=== PATIENT | male | born 1935 | race Caucasian/White ===

== ENCOUNTER 2017-12-23 18:07 | Outpatient (CLI) | payer MEDICARE, OTHER | END 2017-12-23 18:08 | disposition critical access hospital (66) | LOC: EMS 18:07 | PROVIDERS: ATTEND Surgery | DX: H53.133 Sudden visual loss, bilateral (principal); R51 Headache | CPT/HCPCS: A0425; A0429 ==

== ENCOUNTER 2017-12-23 18:26 | Emergency (ER) | payer MEDICARE, OTHER ==
--- NOTE | 2017-12-23 18:39 | ED Physician Documentation ---
PD HPI FOCAL NEURO - Stated complaint Stated Complaint: CP, WEAKNESS, DIFF SEEING - Chief complaint Chief Complaint: Neuro - History obtained from History obtained from: Patient - History of Present Illness Timing - onset: How many hours ago (1), Other (1729) Timing - duration: Hours (1) Timing - details: Abrupt onset Severity of deficit: Moderate Weakness: No: Face, Arm, Hand, Leg, Foot, Right, Left Numbness: No: Face, Arm, Hand, Leg, Foot, Right, Left Associated symptoms: Headache (mild R sided) Contributing factors: negative: Anticoagulated, Vascular dz, Atrial fibrillation , Prosthetic heart valve Baseline status: positive: Other (A&Ox3, cerebral palsy) Similar symptoms before: Has not had sx before Recently seen: Not recently seen Review of Systems Ten Systems: 10 systems reviewed and negative Constitutional: denies: Fever, Chills Eyes: reports: Decreased vision. denies: Photophobia Ears: denies: Ear pain Nose: denies: Rhinorrhea / runny nose, Congestion Throat: denies: Sore throat Cardiac: denies: Chest pain / pressure Respiratory: denies: Cough GI: denies: Abdominal Pain, Nausea, Vomiting, Diarrhea Skin: denies: Rash Musculoskeletal: denies: Neck pain, Back pain Neurologic: denies: Headache PD PAST MEDICAL HISTORY - Present Medications Home Medications: Ambulatory Orders Medication Instructions Recorded Confirmed Tamsulosin [Flomax] 12/23/17 - Allergies Allergies/Adverse Reactions: Allergies Allergy/AdvReac Type Severity Reaction Status Date / Time No Known Drug Allergies Allergy Verified 12/23/17 20:32 PD ED PE NORMAL - Vitals Vital signs reviewed: Yes - General General: Alert and oriented X 3, No acute distress - HEENT HEENT: Atraumatic, PERRL, EOMI, Moist mucous membranes, Pharynx benign - Neck Neck: Supple, no meningeal sign - Cardiac Cardiac: RRR - Respiratory Respiratory: No respiratory distress, Other (Mild crackles bilaterally) - Abdomen Abdomen: Soft, Non tender, Non distended - Derm Derm: Warm and dry, No rash - Extremities Extremities: No edema, No calf tenderness / cord - Neuro Neuro: Alert and oriented X 3, No motor deficit, No sensory deficit, Normal speech - Psych Psych: Normal mood, Normal affect NIHSS - Time Time: 18:30 - Level of Consciousness Level of consciousness: (0) Alert, Keenly responsive LOC Questions: (0) Answers both Q's correct LOC Commands: (0) Performs both correctly - Gaze Best Gaze: (0) Normal - Visual Visual: (3) Bilateral Hemianopia (L sided) - Facial Palsy Facial Palsy: (0) Normal, symmetrical movement - Motor Arms (both separate) Motor Arm (right): (0) No drift Motor Arm (left): (0) No drift - Motor Legs (both separate) Motor Leg (right): (0) No drift Motor Leg (left): (0) No drift - Limb Ataxia Limb Ataxia: (0) Absent - Sensory Sensory: (0) Normal - Best Language Best Language: (0) No aphasia - Dysarthria Dysarthria: (0) Normal - Extinction and Inattention (formally neg Extinction and inattention: (0) No abnormality - Total Score/Results Total Score/Result: 3 Results - Vitals Vitals: Vital Signs - 24 hr 12/23/17 12/23/17 12/23/17 18:31 19:41 19:42 Temperature 36.8 C Heart Rate 84 68 Respiratory 18 16 Rate Blood Pressure 192/112 H 171/116 H O2 Saturation 95 82 L 96 12/23/17 12/23/17 19:48 20:05 Temperature Heart Rate 70 67 Respiratory 16 18 Rate Blood Pressure 175/81 H 155/100 H O2 Saturation 98 93 Oxygen O2 Source Room air - EKG (time done) 1927 Rate: Rate (enter#) (86) Rhythm: NSR [place]: Normal Intervals: Normal MT QRS: Normal Ischemia: ST depression - Labs Labs: Laboratory Tests 12/23/17 12/23/17 12/23/17 19:05 19:05 19:05 WBC 9.1 RBC 4.84 Hgb 15.6 Hct 46.7 MCV 96.5 H MCH 32.1 H MCHC 33.3 RDW 13.5 Plt Count 217 MPV 8.7 Neut # (Auto) 7.1 H Lymph # (Auto) 1.3 L [place] # (Auto) 0.5 Eos # (Auto) 0.1 Baso # (Auto) 0.1 Absolute Nucleated RBC 0.00 Nucleated RBC % 0.0 PT 11.2 INR 1.0 APTT 25.8 Sodium 139 Potassium 3.8 Chloride 105 Carbon Dioxide 22 Anion Gap 12.0 BUN 21 H Creatinine 1.0 Estimated GFR (MDRD) 72 L Glucose 92 Calcium 9.8 Total Bilirubin 0.8 AST 30 ALT 31 Alkaline Phosphatase 62 Total Protein 7.2 Albumin 3.9 Globulin 3.3 Albumin/Globulin Ratio 1.2 Lipase 25 - Rads (name of study) head ct Radiology: Prelim report reviewed, EMP read contemporaneously, See rad report ( no acute abnormality.) cxr Radiology: Prelim report reviewed, EMP read contemporaneously, See rad report ( Developing mild pulmonary edema pattern with small bilateral effusions.) head angio CT Radiology: Prelim report reviewed, EMP read contemporaneously, See rad report ( Findings concordant with left maxilla sinusitis, clinical correlation suggested. No hemodynamically significant intracranial arterial stenosis, occlusion, or aneurysm identified, in the proximal circulation. There is an occluded right P4 segment, appreciated upon discussion of the patient's clinical symptoms with the stroke neurologist. ) neck angio CT Radiology: Prelim report reviewed, EMP read contemporaneously, See rad report ( Acute appearing left maxillary sinusitis. No hemodynamically significant extracranial arterial stenosis or evident dissection. ) PD MEDICAL DECISION MAKING - ED course Complexity details: reviewed results, re-evaluated patient, considered differential, d/w patient, d/w family, d/w senior environmental consultant ED course: Patient is an 82-year-old male who presents to the emergency department with a bilateral left-sided homonymous hemianopia. Concern for stroke. I consulted [place] neurology, Dr. Pinon who performed the telestroke consult. No acute findings on noncontrast head CT. The patient and his were consented for TPA treatment and this was given. I spoke with them regarding the risks and benefits myself as well as the stroke neurologist, Dr. Pinon. Dr. Pinon then requested angiograms of the head and neck before transfer to [place]. These were performed, he reviewed them and accepted the patient in transfer. Patient was sent by [facility]. COBRA forms completed. No changes in his neurological symptoms while in the emergency department. This document was made in part using voice recognition software. While efforts are made to proofread this document, sound alike and grammatical errors may occur. - Sepsis Event Vital Signs: Vital Signs - 24 hr 12/23/17 12/23/17 12/23/17 18:31 19:41 19:42 Temperature 36.8 C Heart Rate 84 68 Respiratory 18 16 Rate Blood Pressure 192/112 H 171/116 H O2 Saturation 95 82 L 96 12/23/17 12/23/17 19:48 20:05 Temperature Heart Rate 70 67 Respiratory 16 18 Rate Blood Pressure 175/81 H 155/100 H O2 Saturation 98 93 Oxygen O2 Source Room air - TPA CVA checklist Inclusion crititeria: positive: Sig neuro deficit, CT no bleed, Onset know < 4.5 hr Absolute contraindications: negative: SBP>185 DBP>110 s/p tx, CT shows bleed, CT shows major est CVA, Platelets <100K, PTT > 40, INR >1.7, Known bleeding disorder, Surgery/trauma < 15 days, Seizure at onset, Internal bleed < 22 days, Brain/spine surg < 3 m, Head trauma < 3 m, CVA < 3 months, Any hx ICH, Any hx brain aneurysm, Any hx brain AVM, Any hx brain tumor, Suspect SAH Departure - Departure Disposition: 02 Transfer Acute Care Hosp Clinical Impression: 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
--- NOTE | 2017-12-23 19:04 | CT Preliminary Report ---
Exam: CT HEAD W/O IMPRESSION: No acute intracranial abnormality. RAD[facility] The call report notification system was initiated by Dr. Yusuf Cota at 19:00 hrs on 12/23/17. The above findings were discussed with Johnnie Arroyo by Dr. Yusuf Cota at 19:02 hrs on 12/23. SITE ID: [id number]
--- NOTE | 2017-12-23 19:04 | CT Report ---
EXAM: CT HEAD EXAM DATE: 12/23/2017 06:50 PM. CLINICAL HISTORY: L visual field deficit. COMPARISON: None. TECHNIQUE: Multiaxial CT images were obtained from the foramen magnum to the vertex. Reformats: Coron al. IV contrast: None. In accordance with CT protocol optimization, one or more of the following dose reduction techniques w ere utilized for this exam: automated exposure control, adjustment of mA and/or KV based on patient s ize, or use of iterative reconstructive technique. FINDINGS: Parenchyma: No intraparenchymal hemorrhage. No evidence of mass, midline shift, or CT findings of inf arction. Shoemaker-white differentiation is distinct. Extraaxial Spaces: Normal for age. No subdural or epidural collections identified. Ventricles: Normal in size and position. Sinuses and Orbits: Imaged paranasal sinuses, orbits, and mastoids show no significant abnormality. Bones: No evidence of fracture or calvarial defect. 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 IMPRESSION: No acute intracranial abnormality. RADIA The call report notification system was initiated by Dr. Yusuf Cota at 19:00 hrs on 12/23/17. The above findings were discussed with Johnnie Arroyo by Dr. Yusuf Cota at 19:02 hrs on 12/23. Referring Provider Line: [phone] SITE ID: [id number]
[2017-12-23 19:10] LABS: BASOPHILS # (AUTO) 0.1 10^3/uL (0.0-0.1); BASOPHILS % (AUTO) 0.6 %; EOSINOPHILS # (AUTO) 0.1 10^3/uL (0.0-0.7); EOSINOPHILS % (AUTO) 0.9 %; HGB - HEMOGLOBIN 15.6 g/dL (14.0-18.0); LYMPHOCYTES # (AUTO) 1.3 10^3/uL (1.5-3.5); LYMPHOCYTES % (AUTO) 14.8 %; MEAN CORPUSCULAR HEMOGLOBIN 32.1 pg (27.0-31.0); MEAN CORPUSCULAR HGB CONC 33.3 g/dL (32.0-36.0); MEAN CORPUSCULAR VOLUME 96.5 fL (80.0-94.0); MEAN PLATELET VOLUME 8.7 fL (7.4-11.4); MONOCYTES # (AUTO) 0.5 10^3/uL (0.0-1.0); MONOCYTES % (AUTO) 5.7 %; NEUTROPHILS # (AUTO) 7.1 10^3/uL (1.5-6.6); PLT - PLATELET COUNT 217 10^3/uL (130-450); RED BLOOD COUNT 4.84 10^6/uL (4.70-6.10); RED CELL DISTRIBUTION WIDTH 13.5 % (12.0-15.0); WHITE BLOOD COUNT 9.1 x10^3/uL (4.8-10.8)
[2017-12-23] MEDS ORDERED: WATER FOR INJECTION STERILE IV STA (19:23)
[2017-12-23] MEDS ORDERED: ALTEPLASE IV STA (19:23)
[2017-12-23 19:24] LABS: ALBUMIN 3.9 g/dL (3.2-5.5); ALBUMIN/GLOBULIN RATIO 1.2 (1.0-2.2); BILIRUBIN,TOTAL 0.8 mg/dL (0.2-1.0); CALCIUM 9.8 mg/dL (8.5-10.3); TOTAL PROTEIN 7.2 g/dL (6.7-8.2)
[2017-12-23] MEDS ORDERED: LABETALOL 5 MG/1 ML 20 ML MDV IVP STA ×2 (19:36→19:46)
[2017-12-23 19:45] LABS: PT - PROTHROMBIN TIME 11.2 secs (9.9-12.6)
[2017-12-23] MEDS ORDERED: ALTEPLASE 100 MG VIAL ONE (19:51)
[2017-12-23] MEDS ORDERED: IOPAMIDOL-300 100 ML VIAL ONE (20:04)
[2017-12-23 20:06] VITALS: BP 155/100
[2017-12-23] MEDS ORDERED: IOPAMIDOL-300 100 ML VIAL IVP ONE (20:34)
--- NOTE | 2017-12-23 20:44 | XRAY Report ---
EXAM: CHEST RADIOGRAPHY EXAM DATE: 12/23/2017 08:22 PM. CLINICAL HISTORY: Shortness of breath. COMPARISON: Previous exam of 03/01/2007. TECHNIQUE: 1 view. FINDINGS: Lungs/Pleura: Developing mild pulmonary edema pattern with likely small bilateral effusions. Mediastinum: Within exam limitations, the cardiomediastinal contour is normal. Other: None. IMPRESSION: Developing mild pulmonary edema pattern with small bilateral effusions. [facility] Referring Provider Line: [phone] SITE ID: [id number]
--- NOTE | 2017-12-23 21:07 | CT Preliminary Report ---
Exam: CT HEAD ANGIO Impression: Findings concordant with left maxilla sinusitis, clinical correlation suggested. No hemodynamically significant intracranial arterial stenosis, occlusion, or aneurysm identified. SITE ID: [id number]
--- NOTE | 2017-12-23 21:16 | CT Report ---
EXAM: CTA HEAD COMPARISON: CT head, 12/23/2017. CLINICAL HISTORY: B L hemianopiafrontal headache. TECHNIQUE: Axial CT images were obtained through the head during arterial phase after intravenous 80ML ISOVUE 30 0iodinated contrast. 3 dimensional MIP reconstructions are created from axial data. Stenosis is measured by NASCET type criteria. In accordance with CT protocol optimization, one or more of the following dose reduction techniques w ere utilized for this exam: automated exposure control, adjustment of mA and/or KV based on patient s ize, or use of iterative reconstructive technique. FINDINGS: Right internal carotid artery: No evidence hemodynamically significant stenosis or aneurysm is identified through the terminus. Righ t M1, M2 and visualized distal segments show no evident stenosis or aneurysm. Right A1, A2 and visual ized distal segments are unremarkable. Left internal carotid artery: No evident hemodynamically significant stenosis or aneurysm is identified through the terminus. There is extensive calcification through the siphon. Left A1, A2 and visualized distal segments are unrema rkable. Left M1, M2 and visualized distal segments are unremarkable. Posterior circulation: Intracranial vertebral arteries are right-sided dominant. PICA origins are well-visualized. There is flow in the distal right PICA. Left vertebral artery ends predominantly in a PICA, does make small co ntribution to the basilar. Basilar artery is unremarkable to its terminus. The right P1, P2 and visua lized distal segments are unremarkable. Left P1, P2 and visualized distal segments are unremarkable. There is an occluded right P4 segment (2, 554). In terms of the brain parenchyma, no hemorrhage or other discrete acute process is identified, somewh at confounded by the presence of contrast. There is fluid in the left maxillary sinus, clinical correlation sinusitis suggested. IMPRESSION: Findings concordant with left maxilla sinusitis, clinical correlation suggested. No hemodynamically significant intracranial arterial stenosis, occlusion, or aneurysm identified, in the proximal circulation. There is an occluded right P4 segment, appreciated upon discussion of the patient's clinical symptoms with the stroke neurologist. Referring Provider Line: [phone] SITE ID: [id number]
--- NOTE | 2017-12-23 21:22 | CT Preliminary Report ---
Exam: CT NECK ANGIO Impression: Acute appearing left maxillary sinusitis. No hemodynamically significant extracranial arterial stenosis or evidence of dissection. SITE ID: [id number]
--- NOTE | 2017-12-23 21:27 | CT Report ---
EXAM: CTA NECK COMPARISON: CTA head, 12/23/2017. CLINICAL HISTORY: B L hemianopia TECHNIQUE: Axial CT images were obtained through the neck during arterial phase after intravenous 80 mL ISOVUE 3 00iodinated contrast. 3 dimensional MIP reconstructions are created from axial data. Stenosis is measured by NASCET type criteria. In accordance with CT protocol optimization, one or more of the following dose reduction techniques w ere utilized for this exam: automated exposure control, adjustment of mA and/or KV based on patient s ize, or use of iterative reconstructive technique. FINDINGS: Visualized right upper chest shows no pulmonary nodules or masses. No pneumothorax. There is a small right pleural effusion. Visualized left upper chest shows no pulmonary nodules or masses. No pneumothorax. Visualized pulmonary arteries are unremarkable. No cervical adenopathy or masses are identified. No retropharyngeal fluid. There is multilevel cervical spondylosis, without high-grade bony canal stenosis identified. Facet arthropathy is most notable at the left C3-C4. Fluid is present within the left maxillary sinus, clinical correlation sinusitis suggested. No middle ear effusions. Arterial structures: Right carotid artery: Right common carotid artery originates normally from the brachycephalic, is unremarkable to the bifur cation. Right internal carotid artery is unremarkable to the skull base. Left carotid artery: Left common carotid artery originates normally from the aortic arch, and "bovine" origin, shows no ev ident hemodynamically significant stenosis or dissection to the bifurcation. No evident hemodynamical ly significant stenosis or dissection to the skull base, there is 20-40% proximal atherosclerotic jignesh rowing. Posterior circulation: Right vertebral artery originates normally from the right subclavian artery, it is dominant, shows no evident hemodynamically significant stenosis or dissection to the dural ring. Left vertebral artery is hypoplastic, originates normally from the left subclavian artery, shows no e vident stenosis or dissection to the dural ring. IMPRESSION: Acute appearing left maxillary sinusitis. No hemodynamically significant extracranial arterial stenosis or evident dissection. Referring Provider Line: [phone] SITE ID: [id number]
== END 2017-12-23 21:17 | disposition short-term general hospital (02) ==
LOC: EDUNIT# → ED 18:26
DX: H53.462 Homonymous bilateral field defects, left side (principal); I63.9 Cerebral infarction, unspecified; G80.9 Cerebral palsy, unspecified
CPT/HCPCS: 36415; 70450; 70496; 70498; 71045; 80053; 83690; 85025; 85610; 85730; 93005; 96374; 96375; 99284; 99285; J2997; Q3014; Q9967

== ENCOUNTER 2018-03-27 09:09 | Outpatient (CLI) | payer MEDICARE, OTHER ==
--- NOTE | 2018-03-27 15:21 | Ultrasound Report ---
Reason: ABNORMAL LFT'S Procedure Date: 03/27/2018 Accession Number: [id number] / [id number] Procedure: US - Abdomen Limited CPT Code: FULL RESULT: EXAM: ABDOMEN ULTRASOUND LIMITED, RUQ EXAM DATE: 03/27/2018 10:11 AM. CLINICAL HISTORY: ABNORMAL LFTS. COMPARISON: None. TECHNIQUE: Real-time scanning was performed with static images obtained. FINDINGS: Liver: The liver is mildly and diffusely echogenic area normal contour. No masses. 15.0 cm. Main portal vein flow: Hepatopetal. Gallbladder: Normal. No stones, wall thickening, or sonographic Cassidy's sign. Biliary System: CBD measures 6 mm. No intrahepatic or extrahepatic ductal dilatation. There are 2 simple appearing cysts in the right kidney measuring up to 2 cm. IMPRESSION: Mild hepatic steatosis RADIA
== END 2018-03-27 09:10 | disposition home or self-care (01) ==
LOC: DI 09:09
PROVIDERS: ATTEND Internal Medicine
DX: K76.0 Fatty (change of) liver, not elsewhere classified (principal)
CPT/HCPCS: 76705

== ENCOUNTER 2019-11-22 02:23 | Outpatient (CLI) | payer MEDICARE, OTHER | END 2019-11-22 02:24 | disposition critical access hospital (66) | LOC: EMS 02:23 | PROVIDERS: ATTEND Surgery | DX: R10.9 Unspecified abdominal pain (principal); R53.83 Other fatigue; R09.89 Other specified symptoms and signs involving the circulatory and respiratory systems | CPT/HCPCS: A0425; A0427 ==

== ENCOUNTER 2019-11-22 02:32 | Emergency (ER) | payer MEDICARE, OTHER ==
--- NOTE | 2019-11-22 02:37 | ED Physician Documentation ---
History of Present Illness - Stated complaint Stated Complaint: ABD PAIN - History obtained from History obtained from: Patient, EMS (Patient is an 83-year-old male complaint of severe abdominal pain according to EMS the found him weak and lethargic and noticed a large bloody bowel movement and brought him to the ER.Remainder the history is unknown.EMS reports that he was hypotensive and complained of abdominal pain. Remainder the history is unknown as the patient is in severe pain and hypotensive. the reports he is on xarelto for atrial fibrillation and he has cerebral palsy that causes chronic leg and back spasms.) Review of Systems Unable to obtain: AMS PD PAST MEDICAL HISTORY - Past Medical History : Benign prostate hypertrophy - Present Medications Home Medications: Ambulatory Orders Medication Instructions Recorded Confirmed Tamsulosin [Flomax] 12/23/17 - Allergies Allergies/Adverse Reactions: Allergies Allergy/AdvReac Type Severity Reaction Status Date / Time No Known Drug Allergies Allergy Verified 12/23/17 20:32 - Social History Does the pt smoke?: Yes Smoking Status: Current every day smoker Does the pt drink ETOH?: Yes Does the pt have substance abuse?: No - Immunizations Immunizations are current?: Yes - POLST Patient has POLST: No PD ED PE NORMAL - Vitals Vital signs reviewed: Yes - General General: Other (Patient is in severe to distress he is pale and diaphoretic he will open his eyes and follow commands but is complaining of severe pain) - HEENT HEENT: Atraumatic, PERRL, Moist mucous membranes - Neck Neck: Supple, no meningeal sign, Thyroid normal, No JVD - Cardiac Cardiac: Other (Irregularly irregular and tachycardic) - Respiratory Respiratory: No respiratory distress, Other (Tachypneic, trachea midline) - Abdomen Abdomen: Other (The patient has involuntary guarding and rebound present rapid bedside ultrasound shows no free fluid, negative FAST exam, no obvious aneurysm or dissectionNo midline abdominal pulsatile mass no CVA tenderness no ecchymosis diminished bowel sounds) - Male Male : Other (No blood at the urethral meatus testicles descended bilaterally) - Rectal Rectal: Other (Good rectal tone grossly Hemoccult positive patients actively having hematochezia) - Back Back: No CVA TTP, No spinal TTP - Derm Derm: Other (Pale and diaphoretic) - Extremities Extremities: No deformity - Neuro Neuro: Other (No gross neurological deficit) Results - Vitals Vitals: Vital Signs - 24 hr 11/22/19 11/22/19 11/22/19 02:32 03:01 03:08 Temperature 35.4 C L Heart Rate 80 99 101 H Respiratory 26 H 24 29 H Rate Blood Pressure 97/51 L 101/60 41/33 L O2 Saturation 96 100 11/22/19 11/22/19 11/22/19 03:38 04:08 04:27 Temperature Heart Rate 113 H 96 87 Respiratory 28 H 21 19 Rate Blood Pressure 101/89 H 99/73 87/52 L O2 Saturation 100 100 98 11/22/19 04:46 Temperature Heart Rate 75 Respiratory 26 H Rate Blood Pressure 80/43 L O2 Saturation 100 Oxygen O2 Source Nasal cannula - EKG (time done) 03:40 Rate: Other (Atrial fibrillation, no STEMI) - Labs Labs: Microbiology 11/22/19 04:30 Occult Blood - Final Stool Laboratory Tests 11/22/19 11/22/19 11/22/19 02:40 02:47 02:47 WBC 16.1 H RBC 4.72 Hgb 11.8 L Hct 39.7 L MCV 84.1 MCH 25.0 L MCHC 29.7 L RDW 16.2 H Plt Count 287 MPV 10.0 Neut # (Auto) 11.8 H Lymph # (Auto) 3.0 [place] # (Auto) 0.6 Eos # (Auto) 0.4 Baso # (Auto) 0.2 H Absolute Nucleated RBC 0.00 Nucleated RBC % 0.0 PT 19.9 H INR 1.8 H APTT 23.6 L Sodium Potassium Chloride Carbon Dioxide Anion Gap BUN Creatinine Estimated GFR (MDRD) Glucose Lactic Acid Calcium Total Creatine Kinase Troponin I High Sens B-Natriuretic Peptide TSH Urine Color Urine Clarity Urine pH Ur Specific [place] Urine Protein Urine Glucose (UA) Urine Ketones Urine Occult Blood Urine Nitrite Urine Bilirubin Urine Urobilinogen Ur Leukocyte Esterase Urine RBC Urine WBC Ur Squamous Epith Cells Urine Bacteria Urine Casts Ur Microscopic Review Urine Culture Comments Urine Opiates Screen Ur Oxycodone Screen Urine Methadone Screen Ur Propoxyphene Screen Ur Barbiturates Screen Ur Tricyclics Screen Ur Phencyclidine Scrn Ur Amphetamine Screen U Methamphetamines Scrn U Benzodiazepines Scrn Urine Cocaine Screen U Cannabinoids Screen Ethyl Alcohol Blood Type B POSITIVE Blood Type Recheck Antibody Screen NEGATIVE Crossmatch IS Only See Detail 11/22/19 11/22/19 11/22/19 02:47 02:47 02:47 WBC RBC Hgb Hct MCV MCH MCHC RDW Plt Count MPV Neut # (Auto) Lymph # (Auto) [place] # (Auto) Eos # (Auto) Baso # (Auto) Absolute Nucleated RBC Nucleated RBC % PT INR APTT Sodium 135 Potassium 4.4 Chloride 103 Carbon Dioxide 18 L Anion Gap 14.0 H BUN 43 H Creatinine 2.0 H Estimated GFR (MDRD) 32 L Glucose 138 H Lactic Acid Calcium 10.2 Total Creatine Kinase 96 Troponin I High Sens B-Natriuretic Peptide 73 TSH 3.44 Urine Color Urine Clarity Urine pH Ur Specific [place] Urine Protein Urine Glucose (UA) Urine Ketones Urine Occult Blood Urine Nitrite Urine Bilirubin Urine Urobilinogen Ur Leukocyte Esterase Urine RBC Urine WBC Ur Squamous Epith Cells Urine Bacteria Urine Casts Ur Microscopic Review Urine Culture Comments Urine Opiates Screen Ur Oxycodone Screen Urine Methadone Screen Ur Propoxyphene Screen Ur Barbiturates Screen Ur Tricyclics Screen Ur Phencyclidine Scrn Ur Amphetamine Screen U Methamphetamines Scrn U Benzodiazepines Scrn Urine Cocaine Screen U Cannabinoids Screen Ethyl Alcohol < 5.0 Blood Type Blood Type Recheck Antibody Screen Crossmatch IS Only 11/22/19 11/22/19 11/22/19 02:47 03:17 03:17 WBC RBC Hgb Hct MCV MCH MCHC RDW Plt Count MPV Neut # (Auto) Lymph # (Auto) [place] # (Auto) Eos # (Auto) Baso # (Auto) Absolute Nucleated RBC Nucleated RBC % PT INR APTT Sodium Potassium Chloride Carbon Dioxide Anion Gap BUN Creatinine Estimated GFR (MDRD) Glucose Lactic Acid 4.7 H* Calcium Total Creatine Kinase Troponin I High Sens 13.2 B-Natriuretic Peptide TSH Urine Color Urine Clarity Urine pH Ur Specific [place] Urine Protein Urine Glucose (UA) Urine Ketones Urine Occult Blood Urine Nitrite Urine Bilirubin Urine Urobilinogen Ur Leukocyte Esterase Urine RBC Urine WBC Ur Squamous Epith Cells Urine Bacteria Urine Casts Ur Microscopic Review Urine Culture Comments Urine Opiates Screen Ur Oxycodone Screen Urine Methadone Screen Ur Propoxyphene Screen Ur Barbiturates Screen Ur Tricyclics Screen Ur Phencyclidine Scrn Ur Amphetamine Screen U Methamphetamines Scrn U Benzodiazepines Scrn Urine Cocaine Screen U Cannabinoids Screen Ethyl Alcohol Blood Type Blood Type Recheck B POSITIVE Antibody Screen Crossmatch IS Only 11/22/19 04:00 WBC RBC Hgb Hct MCV MCH MCHC RDW Plt Count MPV Neut # (Auto) Lymph # (Auto) [place] # (Auto) Eos # (Auto) Baso # (Auto) Absolute Nucleated RBC Nucleated RBC % PT INR APTT Sodium Potassium Chloride Carbon Dioxide Anion Gap BUN Creatinine Estimated GFR (MDRD) Glucose Lactic Acid Calcium Total Creatine Kinase Troponin I High Sens B-Natriuretic Peptide TSH Urine Color YELLOW Urine Clarity N Urine pH 5.5 Ur Specific [place] 1.020 Urine Protein 30 H Urine Glucose (UA) NEGATIVE Urine Ketones NEGATIVE Urine Occult Blood NEGATIVE Urine Nitrite NEGATIVE Urine Bilirubin NEGATIVE Urine Urobilinogen 0.2 (NORMAL) Ur Leukocyte Esterase NEGATIVE Urine RBC None Seen Urine WBC 0-3 Ur Squamous Epith Cells RARE Squamous Urine Bacteria Rare Urine Casts 3-5 Hyaline Casts Ur Microscopic Review INDICATED Urine Culture Comments NOT INDICATED Urine Opiates Screen NEGATIVE Ur Oxycodone Screen NEGATIVE Urine Methadone Screen NEGATIVE Ur Propoxyphene Screen NEGATIVE Ur Barbiturates Screen NEGATIVE Ur Tricyclics Screen NEGATIVE Ur Phencyclidine Scrn NEGATIVE Ur Amphetamine Screen NEGATIVE U Methamphetamines Scrn NEGATIVE U Benzodiazepines Scrn NEGATIVE Urine Cocaine Screen NEGATIVE U Cannabinoids Screen NEGATIVE Ethyl Alcohol Blood Type Blood Type Recheck Antibody Screen Crossmatch IS Only PD MEDICAL DECISION MAKING - ED course Complexity details: considered differential (Patient's initial presentation was concerning for lower GI bleed and/or ruptured AAA. He is grossly Hemoccult positive and is passing large amounts of hematochezia and odor consistent with GI bleed. He has had episodes of severed hypotension on arrival with systolic BP of 50/60 with AMS. The patient immediately was given 2 large-bore IVs established and was given IV fluid boluses as well as given 2 units of O- blood patient was then stabilized and taken to the CT scanner CT scan the abdomen pelvis shows no obvious free air or aortic abdominal dissection or aneurysm. the patient reports that he has some sort of chronic muscle spasms he was having pain while he was in the ER he was given analgesia with IV ketamine which did h elp improve his pain his blood pressures did stabilize with the systolics in the 100s after given 2 units of packed red blood cells and 3 units of IV fluids patient will be emergently transferred to a higher level of care with facility that has GI as well as critical care and surgical specialties. patient confirmed to be on xarelto will give dose of kcentra. also in this patients differential would be ischemic colitis given his abd pain and hematochezia and his elevated lactic as well as his history of atrial fibrillation. given the severity of his hypotension with episodes of sbp in the 60s and obvious hematochezia the decision was made to treat this as a GI bleed and give emergent blood and reverse his xarelto with kcentra and transfer to higher level of care for GI consultation.) - Consults Consults: Discussed case with (dr. gretchen PICHARDO at [facility] in [place] who agreed to care for this patient, spoke with ICU superintendent circus dr. appiah at [facility] in [place] who agreed to accept this patient. patient and updated on plan and agree to transfer for GI evaluation. Dr. Appiah recommends reversal of xarelto with kcentra. ) - Critical Care Time(min): 30 Time Includes: Direct patient care, Review records, Reassess patient, Document care, Coordinate care, Medical consult Data interpretation: Labs, CXR Procedures included in critical care time: Peripheral IV Procedures excluded from critical care time: EKG Departure - Departure Disposition: 02 Transfer Acute Care Hosp Clinical Impression: GI bleed Qualifiers: GI bleed type/associated pathology: unspecified gastrointestinal hemorrhage type Qualified Code(s): K92.2 - Gastrointestinal hemorrhage, unspecified Condition: Critical
[2019-11-22] MEDS ORDERED: SODIUM CHLORIDE 0.9% 1,000 ML IV ONE (02:53)
[2019-11-22 02:59] LABS: BASOPHILS # (AUTO) 0.2 10^3/uL (0.0-0.1); BASOPHILS % (AUTO) 1.1 %; EOSINOPHILS # (AUTO) 0.4 10^3/uL (0.0-0.7); EOSINOPHILS % (AUTO) 2.6 %; HGB - HEMOGLOBIN 11.8 g/dL (14.0-18.0); LYMPHOCYTES % (AUTO) 18.6 %; MEAN CORPUSCULAR HGB CONC 29.7 g/dL (32.0-36.0); MEAN CORPUSCULAR VOLUME 84.1 fL (80.0-94.0); MONOCYTES # (AUTO) 0.6 10^3/uL (0.0-1.0); MONOCYTES % (AUTO) 3.9 %; NEUTROPHILS # (AUTO) 11.8 10^3/uL (1.5-6.6); NEUTROPHILS % (AUTO) 73.2 %; PLT - PLATELET COUNT 287 10^3/uL (130-450); RED BLOOD COUNT 4.72 10^6/uL (4.70-6.10); RED CELL DISTRIBUTION WIDTH 16.2 % (12.0-15.0); WHITE BLOOD COUNT 16.1 x10^3/uL (4.8-10.8)
[2019-11-22 03:05] LABS: INR 1.8 (0.8-1.2); PT - PROTHROMBIN TIME 19.9 secs (9.9-12.6)
[2019-11-22 03:07] LABS: BUN - BLOOD UREA NITROGEN 43 mg/dL (6-20); CALCIUM 10.2 mg/dL (8.5-10.3); CARBON DIOXIDE - CO2 18 mmol/L (21-32); CHLORIDE 103 mmol/L (101-111); CK- CREATINE KINASE 96 IU/L (22-269); GLUCOSE 138 mg/dL (70-100); SODIUM 135 mmol/L (135-145)
[2019-11-22 03:12] LABS: PARTIAL THROMBOPLASTIN TIME 23.6 secs (24.9-33.3)
[2019-11-22] MEDS ORDERED: KETAMINE 500 MG/10 ML VIAL IVP STA ×2 (03:21→03:53)
--- NOTE | 2019-11-22 03:34 | CT Report ---
Reason: abd pain Procedure Date: 11/22/2019 Accession Number: [id number] / [id number] Procedure: CT - Abdomen/Pelvis W CPT Code: Final Report FULL RESULT: EXAM: CT ABDOMEN AND PELVIS EXAM DATE: 11/22/2019 03:14 AM. CLINICAL HISTORY: Abd pain. COMPARISONS: None. TECHNIQUE: Routine helical CT imaging was performed through the abdomen and pelvis. IV contrast: OPTIRAY 320, 100 cc. Enteric contrast: No. Reconstructions: Coronal and sagittal. Note: Essentially no enhancement is seen on the examination. Contrast material appears to be extravasated into the right arm. In accordance with CT protocol optimization, one or more of the following dose reduction techniques were utilized for this exam: automated exposure control, adjustment of mA and/or KV based on patient size, or use of iterative reconstructive technique. FINDINGS: Lung Bases: Bibasilar atelectasis or infiltrate. Heart size upper normal. Coronary artery calcifications. Moderate hiatal hernia. Liver: Large amount of streak artifact. No definite focal abnormality seen. Gallbladder/Bile Ducts: Unremarkable. Spleen: Normal. Pancreas: Normal. Adrenal Glands: Normal. Kidneys: Suboptimally seen due to a large amount of streak artifact, especially on the right. No hydronephrosis or obvious mass identified. Peritoneal Cavity/Bowel: No bowel obstruction seen. No free air or free fluid. No diverticulitis. No lymphadenopathy. Appendix is not well seen. No evidence of appendicitis identified. Pelvic Organs: Streak artifact. Prostate measures 5.1 x 3.7 cm. Urinary bladder is grossly unremarkable. Vasculature: Moderate atherosclerosis. No aneurysm seen. Bones: Left hip prosthesis. Degenerative changes in the spine. Other: None. IMPRESSION: 1. No significant enhancement is seen on the exam. Contrast material appears to be extravasated into the right arm. 2. Mild bibasilar atelectasis or infiltrate with borderline heart size and coronary artery calcifications. 3. Moderate hiatal hernia. 4. No acute inflammatory or obstructive process seen in the abdomen or pelvis. RADIA
[2019-11-22] MEDS ORDERED: cefTRIAXone 1 GM in SODIUM CHLORIDE 0.9% MINIBAG 100 ML IV STA (03:52)
[2019-11-22] MEDS ORDERED: IOVERSOL 320 100 ML VIAL IVP ONE ×2 (03:55→03:59)
--- NOTE | 2019-11-22 04:02 | XRAY Report ---
Reason: ams Procedure Date: 11/22/2019 Accession Number: [id number] / [id number] Procedure: XR - Chest 1 View X-Ray CPT Code: 22176 Final Report FULL RESULT: EXAM: CHEST RADIOGRAPHY EXAM DATE: 11/22/2019 03:44 AM CLINICAL HISTORY: Ams. COMPARISON: CHEST 1 VIEW 12/23/2017 8:01 PM. TECHNIQUE: 1 view. FINDINGS: Lungs/Pleura: Subsegmental opacities at the left base. Mild interstitial and airspace opacities throughout both lungs. No pleural effusion. No pneumothorax. Mediastinum: Within exam limitations, the cardiomediastinal contour is unremarkable. Other: None. IMPRESSION: Interstitial and airspace opacities throughout both lungs, which may reflect mild pulmonary edema. Subsegmental atelectasis versus consolidation in the left lower lobe. RADIA
[2019-11-22 04:07] LABS: MUDS CUTOFF CONCENTRATIONS CUTOFF CONC BELOW:
[2019-11-22 04:15] LABS: GLUCOSE, URINE (UA) NEGATIVE (NEGATIVE); KETONES,URINE (UA) NEGATIVE (NEGATIVE); LEUKOCYTE ESTERASE, URINE NEGATIVE (NEGATIVE); NITRITE,URINE NEGATIVE (NEGATIVE); OCCULT BLOOD,URINE NEGATIVE (NEGATIVE); PH,URINE 5.5 PH (5.0-7.5); PROTEIN,URINE 30 mg/dL (NEGATIVE); UROBILINOGEN,URINE 0.2 (NORMAL) E.U./dL (NORMAL)
[2019-11-22 04:16] LABS: BILIRUBIN,URINE NEGATIVE (NEGATIVE); ICTOTEST,URINE NEGATIVE
[2019-11-22] MEDS ORDERED: PROTHROMBIN COMPLEX CONC 500 UNIT VIAL IVP STA (04:18)
[2019-11-22 04:25] LABS: AMPHETAMINE SCREEN,URINE NEGATIVE (NEGATIVE); BENZODIAZEPINES SCREEN, URINE NEGATIVE (NEGATIVE); COCAINE SCREEN URINE NEGATIVE (NEGATIVE); METHADONE SCREEN, URINE NEGATIVE (NEGATIVE); METHAMPHETAMINES SCREEN, URINE NEGATIVE (NEGATIVE); OPIATE SCREEN, URINE NEGATIVE (NEGATIVE); OXYCODONE SCREEN, URINE NEGATIVE (NEGATIVE); PROPOXYPHENE SCREEN, URINE NEGATIVE (NEGATIVE); TRICYCLIC ANTIDEPRESSANT,URINE NEGATIVE (NEGATIVE)
[2019-11-22 04:27] LABS: BACTERIA,URINE Rare /HPF (None Seen); CASTS, URINE 3-5 Hyaline Casts /LPF; RBC,URINE None Seen /HPF (0-5); SQUAMOUS EPITHELIAL CELL,UR RARE Squamous (<= Few)
[2019-11-22 04:47] VITALS: BP 80/43
[2019-11-24 21:38] LABS: CLARITY,URINE CLEAR (CLEAR)
== END 2019-11-22 05:20 | disposition short-term general hospital (02) ==
LOC: EDUNIT# → ED 02:32
DX: K92.1 Melena (principal); I95.9 Hypotension, unspecified; I48.91 Unspecified atrial fibrillation; Z79.01 Long term (current) use of anticoagulants; G80.9 Cerebral palsy, unspecified; F17.200 Nicotine dependence, unspecified, uncomplicated
CPT/HCPCS: 36415; 36430; 71045; 74177; 80048; 81001; 82272; 82550; 83605; 83880; 84443; 84484; 85025; 85610; 85730; 86850; 86900; 86901; 86920; 87040; 93005; 96365; 96375; 99291; C9132; P9016; Q9967; 80076; 80306; 80320; 81003; 83690; 87086

== ENCOUNTER 2021-10-29 11:08 | Emergency (ER) | payer MEDICARE, OTHER ==
--- NOTE | 2021-10-29 12:52 | ED Physician Documentation ---
PD HPI MALE - Stated complaint Stated Complaint: MALE - Chief complaint Chief Complaint: Abd Pain - History obtained from History obtained from: Patient, Caregiver - History of Present Illness Timing - onset: How many days ago (The patient has had about 5 days of new symptoms of urinary discomfort, frequency, incontinence and lower abdominal suprapubic cramping. No fevers no flank pain.) Timing - duration: Days (5) Timing - details: Abrupt onset, Still present Associated symptoms: Dysuria, Urinary frequency, Other (incontinent of urine, with small amounts out each time.). No: Discharge, Genital sore / lesion PD HPI MALE CONTRIB FACTORS: No: Indwelling catheter Similar symptoms before: Has not had sx before Recently seen: Not recently seen (They talked with their primary care provider and were instructed to bring in a urine sample, which they did do to the office yesterday. No results back as yet.) Review of Systems Constitutional: denies: Fever, Chills GI: denies: Nausea, Vomiting, Diarrhea : reports: Dysuria, Frequency, Incontinent PD PAST MEDICAL HISTORY - Past Medical History Past Medical History: Yes Cardiovascular: Hypertension, Atrial fibrillation Neuro: Cerebral palsy, CVA GI: GI bleed : Benign prostate hypertrophy HEENT: Chronic vision loss, Chronic hearing loss - Past Surgical History Past Surgical History: No - Present Medications Home Medications: Ambulatory Orders Medication Instructions Recorded Confirmed Tamsulosin [Flomax] 0.4 mg PO DAILY 12/23/17 10/29/21 Lisinopril [Zestril] 20 mg PO DAILY 10/29/21 10/29/21 Oxybutynin [Ditropan] 5 mg PO BID 5 Days #10 tablet 10/29/21 Rivaroxaban [Xarelto] 20 mg PO HS 10/29/21 10/29/21 cephALEXin [Keflex] 500 mg PO TID #20 cap 10/29/21 dilTIAZem HCL [Diltiazem HCl] 60 mg PO Q8HR 10/29/21 10/29/21 - Allergies Allergies/Adverse Reactions: Allergies Allergy/AdvReac Type Severity Reaction Status Date / Time No Known Drug Allergies Allergy Verified 10/29/21 11:19 - Social History Does the pt smoke?: Yes Smoking Status: Current every day smoker Does the pt drink ETOH?: Yes Does the pt have substance abuse?: No - Immunizations Immunizations are current?: Yes - POLST Patient has POLST: No PD ED PE NORMAL - Vitals Vital signs reviewed: Yes - General General: Alert and oriented X 3, No acute distress, Well developed/nourished - Cardiac Cardiac: RRR, No murmur - Respiratory Respiratory: Clear bilaterally - Abdomen Abdomen: Soft, Non tender, Non distended - Male Male : Other (no exernal rash nor sores. ) - Rectal Rectal: Deferred - Back Back: No CVA TTP - Derm Derm: Normal color Results - Vitals Vitals: Vital Signs - 24 hr 10/29/21 10/29/21 11:13 13:18 Temperature 36.6 C 36.5 C Heart Rate 53 L 56 L Respiratory 16 16 Rate Blood Pressure 136/74 H 130/72 O2 Saturation 100 100 Oxygen O2 Source Room air PD MEDICAL DECISION MAKING - ED course Complexity details: reviewed results, considered differential (Symptoms most likely sound consistent with UTI and bladder spasms. They had brought a urine sample to Dr. Galvan's office yesterday. We will try to track the results of that. Their office is currently closed for lunch.), d/w patient ED course: We waited for their primary care office providers to get back from lunch and contacted them. They had received the urine sample yesterday and sent it to the lab but the lab has no record of receiving it. Unclear where it is. We attempted obtaining a urine sample here with a condom catheter but it leaked and we are unable to collect any. The patient does not want a Huggins catheter or in and out cath. He and his are anxious to be discharged. Therefore we will have the shared decision with the patient and I to treat empirically for UTI with spasms and watch for improvement over the next few days. Departure - Departure Disposition: 01 Home, Self Care Condition: Stable Record reviewed to determine appropriate education?: Yes Follow-Up: Heaven Galvan MD [Primary Care Provider] - Prescriptions: Oxybutynin [Ditropan] 5 mg PO BID 5 Days #10 tablet cephALEXin [Keflex] 500 mg PO TID #20 cap Comments: We can treat this as most probable UTI given your symptoms. Antibiotics and antispasmodic as directed. I would really anticipate improvement over the next 2 to 3 days. Recheck if not improving in that timeframe or you develop worse symptoms such as fever, back pain, vomiting, other concerns. I transmitted your prescriptions to the [facility] pharmacy here in [place].
[2021-10-29 13:23] VITALS: BP 130/72
[2021-10-29] MEDS: OXYBUTYNIN 5MG TABLET PO STA (13:47)
[2021-10-29] MEDS: cephALEXin 250 MG CAPSULE PO STA (13:47)
== END 2021-10-29 13:50 | disposition home or self-care (01) ==
LOC: ED 11:08
DX: N39.0 Urinary tract infection, site not specified (principal); R32 Unspecified urinary incontinence; I48.91 Unspecified atrial fibrillation; F17.200 Nicotine dependence, unspecified, uncomplicated; I10 Essential (primary) hypertension
CPT/HCPCS: 99283; A9270

== ENCOUNTER 2021-10-30 01:32 | Outpatient (CLI) | payer MEDICARE, OTHER | END 2021-10-30 01:33 | disposition E | LOC: EMS 01:32 ==